=== PATIENT | male | born 1985 | race Caucasian/White ===

== ENCOUNTER 2022-11-23 10:18 | Emergency (ER) | payer OTHER ==
[2022-11-23 10:25] VITALS: BP 124/85; PULSE 87; RESP 18; TEMP 97.7; BMI 33.9
[2022-11-23] MEDS ORDERED: KETOROLAC TROMETHAMINE 30 MG/1 ML VIAL IM ONE (10:59)
[2022-11-23] MEDS ORDERED: KETOROLAC TROMETHAMINE 30 MG/1 ML VIAL ONE (11:00)
== END 2022-11-23 12:22 | disposition home or self-care (01) ==
LOC: JERFT 10:18
PROC: 3E0233Z Introduction of Anti-inflammatory into Muscle, Percutaneous Approach (ICD-10-PCS; principal; 2022-11-23)
DX: M54.40 Lumbago with sciatica, unspecified side (principal)
CPT/HCPCS: 72100-TC-FY; 99284-25

== ENCOUNTER 2023-06-11 09:33 | Emergency (ER) | payer OTHER ==
[2023-06-11 09:39] VITALS: BP 129/86; PULSE 90; RESP 18; TEMP 99.9; BMI 32.9
[2023-06-11] MEDS ORDERED: ACETAMINOPHEN 325 MG TABLET (FP) ONE (09:53)
[2023-06-11] MEDS ORDERED: DEXAMETHASONE 4 MG TABLET (FP) ONE (09:54)
[2023-06-11] MEDS ORDERED: KETOROLAC TROMETHAMINE 15 MG/ML VIAL ONE (09:54)
[2023-06-11] MEDS ORDERED: DEXAMETHASONE SOD PHOSPHATE 10 MG/1 ML VIAL ONE (09:56)
[2023-06-11] MEDS: DEXAMETHASONE SOD PHOSPHATE 10 MG/1 ML VIAL PO ONE (10:00)
[2023-06-11] MEDS: KETOROLAC TROMETHAMINE 15 MG/ML VIAL IM ONE (10:05)
[2023-06-11] MEDS: ACETAMINOPHEN 500 MG TABLET (FP) PO ONE (10:07)
[2023-06-11 12:02] LABS: THROAT:GRP A STREP DETECTED (NOTDETECTED)
== END 2023-06-11 10:35 | disposition home or self-care (01) ==
LOC: FER 09:33
PROC: 3E0233Z Introduction of Anti-inflammatory into Muscle, Percutaneous Approach (ICD-10-PCS; principal; 2023-06-11)
DX: H92.02 Otalgia, left ear (principal); J02.9 Acute pharyngitis, unspecified; R09.81 Nasal congestion; R50.9 Fever, unspecified; H73.012 Bullous myringitis, left ear; J11.1 Influenza due to unidentified influenza virus with other respiratory manifestations; Z20.822 Contact with and (suspected) exposure to COVID-19
CPT/HCPCS: 0241U-QW; 87651; 99284-25; J1100